=== PATIENT | female | born 1955 | race Caucasian/White ===

== ENCOUNTER → 2016-04-01 08:30 | Outpatient (CLI) | payer BC ==
[2016-02-03 17:26] VITALS: BMI 29.3
[~2016-04-01 08:30] MED LIST: CALCIUM 600 +1 EAC3 PO; HYDROCODON-ACE1 EAC7 PO; NEXIUM20 MG PO; ZANTAC150 MG PO; ZOFRAN ODT4 MG/UDTAB PO
== END | disposition home or self-care (01) ==
LOC: D.US 08:30 → D.NM 09:30
DX: R11.0 Nausea (principal); R10.9 Unspecified abdominal pain